=== PATIENT | male | born 1985 | race Caucasian/White ===

== ENCOUNTER 2017-05-01 00:01 | Emergency (ER) | payer SELFPAY ==
[~2017-05-01] VITALS: Ht 188 cm; Wt 99.8 kg
--- NOTE | 2017-05-01 01:09 | Emergency Room Report ---
History of Present Illness General Chief Complaint: Behavioral Complaint Source: Patient Present Illness HPI Is a 31-year-old male with no past medical history. He presents with chief complaint of anxiety/panic attack. He said he hasn't used marijuana over 11 years. He was watching a movie with his friends. One of his friends was using marijuana called "meka." He was a highly concentrated marijuana. After taking he hit, he felt very anxious and short of breath. Said his heart was beating fast. Denies any fever chills denies any nausea vomiting. No suicidal thought homicidal thought. No other complaint. Denies any other Drug use Allergies: Coded Allergies: No Known Allergies (Unverified , 05/01/17) Patient History Past Medical History: see triage record, old chart reviewed Past Surgical History: other Family History: none Social History: other Immunizations: other Reviewed Nursing Documentation: PMH: Agreed, PSxH: Agreed Nursing Documentation-PMH History Of Psychiatric Problem: Yes - ANXIETY Review of Systems ENT: Denies: sore throat Cardiovascular: Denies: chest pain, palpitations Gastrointestinal/Abdominal: Denies: diarrhea, nausea, vomiting Musculoskeletal: Denies: back problems Skin: Denies: rash Psychiatric: Reports: anxiety Neurological: Denies: PLASCENCIA, seizures All Other Systems: negative except mentioned in HPI Physical Exam Vital Signs Date Time Temp Pulse Resp B/P Pulse Ox O2 Delivery O2 Flow Rate FiO2 05/01/17 00:27 97.9 106 20 122/72 100 Room Air vitals unremarkable Sp02 EP Interpretation: reviewed, normal General Appearance: alert/responsive, no apparent distress, non-toxic Head: normocephalic, atraumatic Eyes: PERRL, EOMI ENT: oropharynx normal Neck: supple/symm/no masses Respiratory: effort normal, no rhonchi, no wheezing Cardiovascular: no murmur, gallop, rub Gastrointestinal: non-tender, no mass, non-distended, no rebound/guarding, normal bowel sounds Musculoskeletal: gait & station normal Neurologic: oriented x3, sensory intact, motor strength/tone normal Skin: no rash, normal palpation Medical Decision Making Diagnostic Impression: Primary Impression: Anxiety attack ER Course Patient with anxiety. Heart rate better here. He appear calm. We'll discharge home. Last Vital Signs Date Time Temp Pulse Resp B/P Pulse Ox O2 Delivery O2 Flow Rate FiO2 05/01/17 00:27 97.9 106 20 122/72 100 Room Air Status: improved Disposition: HOME, SELF-CARE Condition: Stable Additional Instructions: Follow up with your doctor in 7 days. Return if worse. BRANDO BRADY M.D. May 01, 2017 01:09
[2017-05-01] MEDS ORDERED: LORazepam 1mg tab ORAL ONE (01:15)
[2017-05-01 01:25] VITALS: BP 122/72
== END 2017-05-01 01:26 | disposition home or self-care (01) ==
LOC: EMR 00:30
DX: F41.9 Anxiety disorder, unspecified (principal)
CPT/HCPCS: 99282

== ENCOUNTER 2018-04-03 12:49 | Emergency (ER) | payer OTHER ==
[~2018-04-03] VITALS: Ht 188 cm; Wt 98.4 kg
[2018-04-03] MEDS ORDERED: NKM (13:00)
[2018-04-03 13:02] VITALS: BP 127/75
--- NOTE | 2018-04-03 13:24 | Emergency Room Report ---
History of Present Illness General Chief Complaint: Substance Abuse Source: Patient Present Illness HPI 32-year-old male patient presents to the ER complaining of possible overdose. Patient reports that he was drinking alcohol last night then used cocaine, states then snorted Adderall this morning at 5 AM. Reports that he woke up this morning with dry mouth and feeling anxious. States that he called poison control and they told him to go to the nearest hospital to rule out heart attack. Patient denies fever, chest pain, abdominal pain, vomiting, other acute symptoms. Reports history of anxiety. Denies history of cardiovascular disease. Denies other symptoms. Denies vision changes, denies fainting, denies dysuria, epistaxis Allergies: Coded Allergies: No Known Allergies (Unverified , 05/01/17) Patient History Past Medical History: see triage record Reviewed Nursing Documentation: PMH: Agreed; PSxH: Agreed Nursing Documentation-PMH History Of Psychiatric Problem: Yes - ANXIETY Review of Systems All Other Systems: negative except mentioned in HPI Physical Exam Vital Signs Date Time Temp Pulse Resp B/P (MAP) Pulse Ox O2 Delivery O2 Flow Rate FiO2 04/03/18 12:55 98.2 104 18 127/75 97 Room Air 98.2 Sp02 EP Interpretation: reviewed, normal General Appearance: well appearing, no apparent distress, alert, GCS 15, non- toxic Head: normocephalic, atraumatic Eyes: bilateral eye normal inspection, bilateral eye PERRL ENT: hearing grossly normal, normal pharynx, no angioedema, normal voice, TMs + canals normal, uvula midline, moist mucus membranes Neck: full range of motion, no bony tend Respiratory: lungs clear, normal breath sounds, no rhonchi, no respiratory distress, no accessory muscle use, no wheezing, speaking full sentences Cardiovascular #1: regular rate, rhythm, no edema Cardiovascular #2: 2+ radial (R), 2+ radial (L) Gastrointestinal: non tender, soft, no mass, non-distended, no guarding, no rebound Musculoskeletal: back normal, digits/nails normal, gait/station normal, normal range of motion, non-tender Neurologic: alert, oriented x3, responsive, cotton presser III-XII nml as tested, motor strength/tone normal, SLR negative, sensory intact, cerebellar normal, normal gait, speech normal Psychiatric: mood/affect normal Skin: no rash Lymphatic: no adenopathy Medical Decision Making PA Attestation Dr. Dunn is my supervising Physician whom patient management has been discussed with. Diagnostic Impression: Primary Impression: Substance abuse ER Course Pt. presents to the ED BIB ambulance c/o possible drug overdose. multiple differentials considered. Vital signs: are WNL, pt. is afebrile ER COURSE: physical exam benign, lungs clear to auscultation, no abdominal tenderness to palpation, cranial nerves intact as tested, no focal deficits, able to ambulate without difficulty. History of anxiety, patient states may be exacerbating his fears of possible overdose at this time. Will order EKG to rule out possible STEMI. EKG shows no ST elevations or arrhythmia, low suspicion for [place] or cardiac disease at this time. Instructed patient not to use drugs in excess, don't use drugs at all. Doesn't drink alcohol in excess. Patient vitals stable, not tachycardic, nondiaphoretic, patient okay for discharge to home. patient states he feels better following discussion of symptoms. Informed patient physical exam negative, instructed to follow-up with primary care provider discuss further referral and treatment as needed. Follow with mental health professional as needed to discuss anxiety. states following up with cognitive behavioral therapist. Provided with contact information for mental health urgent care. DISCHARGE: At this time pt is stable for d/c to home. Patient is resting comfortably, in no acute distress, nontoxic appearing, talking without difficulty. Patient to take medications as instructed Will provide with patient care instructions and any necessary prescriptions. Care plan and follow-up instructions provided. Patient instructed to follow-up with primary care provider in 3 - 5 days. Patient questions asked and answered. Patient reports understanding and agreement to treatment plan. ER precautions given. Patient instructed to return to ER immediately for any new or worsening of symptoms including but not limited to increasing SOB, persistent fever. - Please note that this Emergency Department Report was dictated using [employer] deputy technology software, occasionally this can lead to erroneous entry secondary to interpretation by the dictation equipment. EKG Diagnostic Results Rate: normal Rhythm: NSR ST Segments: no acute changes ASA given to the pt in ED: No PA Scribe Text Bill Tao PA-C Rhythm Strip Diag. Results EP Interpretation: yes Rate: 74 Rhythm: NSR, no PVC's, no ectopy PA Scribe Veronica Tao PA-C Last Vital Signs Date Time Temp Pulse Resp B/P (MAP) Pulse Ox O2 Delivery O2 Flow Rate FiO2 04/03/18 13:02 98.2 104 18 127/75 97 Room Air 98.2 Disposition: HOME, SELF-CARE Condition: Stable Referrals: NOT CHOSEN IPA/MD,REFERRING (PCP) Patient Instructions: Substance Use Disorder Additional Instructions: Followup with primary care provider in 3 -5 days. Discuss further treatment and referral as needed. Followup with mental health professional to discuss anxiety and treatment. Don't use drugs. Don't drink alcohol in excess. Take medications as directed. Patient questions asked and answered. ER precautions given, patient instructed to return to ER immediately for any new or worsening of symptoms. Aristeo Tao Apr 03, 2018 13:24
[2018-04-03 13:38] VITALS: BP 124/74
--- NOTE | 2018-04-08 16:32 | Cardiology Report ---
APPROVED REPORT EKG Measurement Heart [id number] MA [id number] Normal sinus rhythm with sinus arrhythmia Normal ECG
== END 2018-04-03 13:39 | disposition home or self-care (01) ==
LOC: EMR 13:09
DX: F19.10 Other psychoactive substance abuse, uncomplicated (principal); F41.9 Anxiety disorder, unspecified
CPT/HCPCS: 93005; 99283